=== PATIENT | female | born 1955 | race Caucasian/White ===

== ENCOUNTER 2016-11-16 14:23 | Emergency (ER) | payer OTHER ==
--- NOTE | 2016-11-16 14:35 | ER Document Report ---
ED Medical Screen (RME) - General Stated Complaint: ABDOMINAL PAIN Time seen by provider: 14:28 Mode of Arrival: Ambulatory Information source: Patient Notes: 61-year-old female complaining of generalized abdomen pain and nausea, vomited multiple times which made the abdomen feel better. No constipation , normal bm this am. The abd pain recurred this am at 9:30. associated with nausea. TRAVEL OUTSIDE OF THE [place] IN LAST 30 DAYS: No - Related Data Allergies/Adverse Reactions: No Known Allergies Allergy (Unverified 02/23/11 12:24) Past Medical History - Past Medical History Cardiac Medical History: Denies: Hx Coronary Artery Disease, Hx Heart Attack, Hx Hypertension Pulmonary Medical History: Denies: Hx Asthma, Hx Bronchitis, Hx COPD, Hx Pneumonia Neurological Medical History: Denies: Hx Cerebrovascular Accident, Hx Seizures GI Medical History: Denies: Hx Hiatal Hernia, Hx Ulcer Musculoskeltal Medical History: Denies Hx Arthritis Infectious Medical History: Past Surgical History: Reports: Hx Hysterectomy, Hx Tonsillectomy. Denies: Hx Mastectomy, Hx Open Heart Surgery, Hx Pacemaker - Immunizations Hx Diphtheria, Pertussis, Tetanus Vaccination: No - Greater than 10 yrs
[2016-11-16] MEDS ORDERED: OXYCODONE-ACETAMINOPHEN 5-325 MG TABLET PO ONE (14:38)
[2016-11-16] MEDS ORDERED: ONDANSETRON 4 MG TAB.RAPDIS PO ONE (14:38)
[2016-11-16 14:58] LABS: ABSOLUTE BASOPHILS # (AUTO) 0.1 10^3/uL (0.0-0.2); ABSOLUTE EOSINOPHILS # (AUTO) 0.1 10^3/uL (0.0-0.6); ABSOLUTE LYMPHOCYTES (AUTO) 1.8 10^3/uL (0.5-4.7); ABSOLUTE MONOCYTES (AUTO) 0.8 10^3/uL (0.1-1.4); ABSOLUTE NEUT (AUTO) 8.3 10^3/uL (1.7-8.2); BASOPHILS % (AUTO) 0.6 % (0-2); EOSINOPHILS % (AUTO) 0.8 % (0-6); HEMATOCRIT 41.4 % (36.0-47.0); HEMOGLOBIN 14.3 g/dL (12.0-15.5); HGB HCT DIFFERENCE 1.5; LYMPHOCYTES % (AUTO) 16.1 % (13-45); MEAN CORPUSCULAR HEMOGLOBIN 29.1 pg (27.0-33.4); MEAN CORPUSCULAR HGB CONC 34.5 g/dL (32.0-36.0); MEAN CORPUSCULAR VOLUME 84 fl (80-97); MONOCYTES % (AUTO) 6.9 % (3-13); RED BLOOD COUNT 4.91 10^6/uL (3.72-5.28); RED CELL DISTRIBUTION WIDTH 13.3 % (11.5-14.0); SEGMENTED NEUTROPHILS % (AUTO) 75.6 % (42-78); WHITE BLOOD COUNT 10.9 10^3/uL (4.0-10.5)
[2016-11-16 15:05] LABS: APPEARANCE,URINE CLEAR; BILIRUBIN,URINE NEGATIVE (NEGATIVE); GLUCOSE, URINE NEGATIVE (NEGATIVE); KETONES,URINE NEGATIVE (NEGATIVE); LEUKOCYTE ESTERASE,URINE NEGATIVE (NEGATIVE); NITRITE,URINE NEGATIVE (NEGATIVE); PROTEIN,URINE NEGATIVE (NEGATIVE); URINE SPECIFIC GRAVITY 1.016
[2016-11-16 15:17] LABS: ALANINE AMINOTRANSFERASE 65 U/L (9-52); ALBUMIN 4.6 g/dL (3.5-5.0); ALKALINE PHOSPHATASE 127 U/L (38-126); ANION GAP 13 (5-19); ASPARTATE AMINO TRANSFERASE 102 U/L (14-36); BILIRUBIN,TOTAL 1.5 mg/dL (0.2-1.3); BLOOD UREA NITROGEN 14 mg/dL (7-20); CALCIUM 10.1 mg/dL (8.4-10.2); CARBON DIOXIDE 27 mmol/L (22-30); CHLORIDE 105 mmol/L (98-107); CREATININE RESULT 0.72 mg/dL (0.52-1.25); GLUCOSE 93 mg/dL (75-110); LIPASE 71.8 U/L (23-300); SODIUM 144.6 mmol/L (137-145); TOTAL PROTEIN 7.5 g/dL (6.3-8.2)
--- NOTE | 2016-11-16 15:58 | ER Document Report ---
ED GI/ - General Mode of Arrival: Ambulatory Information source: Patient TRAVEL OUTSIDE OF THE [place] IN LAST 30 DAYS: No - HPI Patient complains to provider of: Abdominal pain, Vomiting Onset: This morning - 09:30 Timing/Duration: Sudden, Persistent Context: Other - Pizza last night. Location: Epigastric, LLQ, RUQ Associated symptoms: Nausea, Radiates to back, Vomiting. denies: Fever, Urinary hesitancy, Urinary frequency, Urinary retention, Urinary urgency Similar symptoms previously: Yes <CYN DUKE - Last Filed: 11/16/16 16:19> <DELPHINE MORA - Last Filed: 11/16/16 19:37> - General Chief Complaint: Abdominal Pain >50 Stated Complaint: ABDOMINAL PAIN Notes: Patient is a 61-year-old female presenting to the emergency department concerned of severe upper abdominal pain which radiates into her back onset this morning at approximately 09:30. Patient admits to Nausea, vomiting, and clamminess, but denies fever or any urinary issues. atient states that she has a history of colorectal cancer and gallstones. Patient has been in remission for 10 years, and her colorectal surgeon discussed cholecystectomy when she was having her bowel resection, but the surgery ended up being more complicated than anticipated, so he was unable to remove her gall bladder. Patient also states that she has episodes of abdominal pain, nausea, and vomiting approximately 2x per year, but they only last a few hours and usually go away. Patient states this episode feels similar, but it has been very persistent, and the episodes have been happening more frequently. Patient also mentioned that she had pizza for dinner last night. (CYN DUKE) - Related Data Allergies/Adverse Reactions: No Known Allergies Allergy (Verified 11/16/16 14:29) Past Medical History - General Information source: Patient - Social History Smoking Status: Never Smoker Chew tobacco use (# tins/day): No Frequency of alcohol use: None Drug Abuse: None Family History: Reviewed & Not Pertinent Patient has suicidal ideation: No Patient has homicidal ideation: No - Past Medical History Cardiac Medical History: Pulmonary Medical History: Denies: Hx COPD Malignancy Medical History: Reports: Hx Colorectal Cancer GI Medical History: Musculoskeltal Medical History: Infectious Medical History: Past Surgical History: Reports: Hx Colostomy, Hx Hysterectomy, Hx Tonsillectomy - Immunizations Hx Diphtheria, Pertussis, Tetanus Vaccination: No - Greater than 10 yrs <CYN DUKE - Last Filed: 11/16/16 16:19> Review of Systems - Review of Systems Constitutional: Diaphoresis - Clammy EENT: No symptoms reported Cardiovascular: No symptoms reported Respiratory: No symptoms reported Gastrointestinal: See HPI, Abdominal pain, Nausea, Vomiting Genitourinary: No symptoms reported Female Genitourinary: No symptoms reported Musculoskeletal: See HPI, Back pain Skin: No symptoms reported Hematologic/Lymphatic: No symptoms reported Neurological/Psychological: No symptoms reported -: Yes All other systems reviewed and negative <CYN DUKE - Last Filed: 11/16/16 16:19> Physical Exam - Vital signs Interpretation: Hypertensive - General General appearance: Appears well, Alert - HEENT Head: Normocephalic, Atraumatic Eyes: Normal Pupils: PERRL - Respiratory Respiratory status: No respiratory distress Chest status: Nontender - Cardiovascular Rhythm: Regular Heart sounds: Normal auscultation Murmur: No - Abdominal Inspection: Obese Distension: No distension Bowel sounds: Normal - Back Back: Normal, Nontender - Extremities General upper extremity: Normal inspection, Nontender, Normal color, Normal ROM , Normal temperature General lower extremity: Normal inspection, Nontender, Normal color, Normal ROM , Normal temperature, Normal weight bearing - Neurological Neuro grossly intact: Yes Cognition: Normal Orientation: AAOx4 [place] Coma Scale Eye Opening: Spontaneous [place] Coma Scale Verbal: Oriented [place] Coma Scale Motor: Obeys Commands [place] Coma Scale Total: 15 Speech: Normal - Psychological Associated symptoms: Normal affect, Normal mood - Skin Skin Temperature: Warm Skin Moisture: Dry Skin Color: Normal <CYN DUKE - Last Filed: 11/16/16 16:19> Course - Laboratory Result Diagrams: 11/16/16 14:40 11/16/16 14:40 <CYN DUKE - Last Filed: 11/16/16 16:19> - Laboratory Result Diagrams: 11/16/16 14:40 11/16/16 14:40 <DELPHINE MORA - Last Filed: 11/16/16 19:37> - Re-evaluation Re-evalutation: 11/16/16 19:30 I personally performed the services described in the documentation, reviewed and edited the documentation which was dictated to my scribe in my presence, and it accurately records my words and actions. Patient presents the emergency department with a chief complaint of upper abdominal pain. She says it started yesterday was pretty severe nature but seemed to subside. She states it recurred today associated with eating. She has a history of colon cancer with no colostomy in remission has frequent follow- ups were then there is not been any recurrence. She says she is nauseated but no vomiting diarrhea or blood in her stool. She now she has gallstones had them last evaluated about 10 years ago but is not spoke with the surgeon about getting them out. She also denies any GI history or history of kidney stones. She has a chest pain shortness of breath on physical examination she is well- appearing nontoxic with epigastric right upper quadrant abdominal pain. On examination mild tenderness the right upper quadrant no inspiratory positive guarding rebound rigidity she is hemodynamically stable. She is afebrile. No acute white count elevation mildly elevated liver enzymes gallbladder shows cholelithiasis but no acute cholecystitis. CT scan with IV contrast shows postoperative changes but nothing acute. On serial abdominal examination she has no guarding rebound rigidity peritoneal signs her pain is only is resolved. I'm going to discharge her with pain and nausea medication she's going to contact Dr. Kothari in a.m. for 2-3 day follow-up and discuss reasons for ED return sooner (DELPHINE MORA) - Vital Signs Vital signs: Temp Pulse Resp BP Pulse Ox 97.9 F 68 16 143/61 H 99 11/16/16 14:30 11/16/16 14:30 11/16/16 14:30 11/16/16 14:30 11/16/16 14:30 (CYN DUKE) (DELPHINE MORA) - Laboratory Laboratory results interpreted by me: 11/16/16 11/16/16 11/16/16 14:40 14:40 14:40 WBC 10.9 H Absolute Neutrophils 8.3 H Total Bilirubin 1.5 H AST 102 H ALT 65 H Alkaline Phosphatase 127 H Urine Urobilinogen 2.0 H (CYN DUKE) (DELPHINE MORA) Discharge <CYN DUKE - Last Filed: 11/16/16 16:19> <DELPHINE MORA - Last Filed: 11/16/16 19:37> - Discharge Clinical Impression: Abdominal pain Qualifiers: Abdominal location: unspecified location Qualified Code(s): R10.9 - Unspecified abdominal pain Condition: Stable Disposition: HOME, SELF-CARE Additional Instructions: Abdominal Pain There are many causes of abdominal pain. Pain can mean a serious problem requiring surgery (such as appendicitis). It can also be an innocent problem that goes away on its own (such as a viral infection). Often, time must pass to determine the cause of pain. The physician does not feel that hospitalization is necessary, at present. Things may change within the next 24 hours. Call the doctor or come back for re- examination if any problems occur, such as: (1) Pain that becomes more severe, steady, or becomes concentrated in one specific area. Also, pain that is more severe with movement or coughing. (2) Vomiting that persists or becomes more frequent. (3) Blood in the vomitus, urine, or bowel movements. Blood in the stool may have a tarry or black appearance. (4) Shaking chills or fever greater than 100 degrees F. (5) The abdomen becomes more distended or swollen. (6) Bowel movements cease. (7) Failure to improve as expected. Prescriptions: Ondansetron [Zofran Odt 4 mg Tablet] 1 - 2 tab PO Q4H PRN #15 tab.rapdis PRN Reason: For Nausea/Vomiting Oxycodone HCl/Acetaminophen [Percocet 10-325 Mg Tablet] 1 each PO Q4 #12 tablet Referrals: LIZA KOTHARI MD [ACTIVE STAFF] - Follow up in 3-5 days (Call in a.m. to be seen in follow-up in 2-3 days return for increasing worsening or new symptoms) MERRY FRANCO MD [Primary Care Provider] - Follow up as needed (in 1-2 days) Scribe Documentation - Scribe acting as scribe for :: Greg <CYN DUKE - Last Filed: 11/16/16 16:19>
[2016-11-16] MEDS ORDERED: NORMAL SALINE 1000 ML 1,000 ML IV ONE (15:59)
[2016-11-16] MEDS ORDERED: FENTANYL CITRATE INJ/PF 100 MCG/2 ML AMPUL IV ONE (15:59)
[2016-11-16] MEDS ORDERED: HYDROCODONE/ACETAMINOPHEN 5-325 MG 6 TAB/DSPK PO PRN (19:37)
[2016-11-16] MEDS ORDERED: ONDANSETRON ODT 4 MG TAB (6 TAB/DSPK) PO PRN (19:37)
[2016-11-16 20:35] VITALS: BP 128/68
== END 2016-11-16 20:35 | disposition home or self-care (01) ==
LOC: ER 14:23
DX: K80.20 Calculus of gallbladder without cholecystitis without obstruction (principal); R10.13 Epigastric pain; R10.11 Right upper quadrant pain; R10.32 Left lower quadrant pain; R11.0 Nausea; R11.2 Nausea with vomiting, unspecified; R61 Generalized hyperhidrosis; Z90.49 Acquired absence of other specified parts of digestive tract; Z87.19 Personal history of other diseases of the digestive system; Z85.048 Personal history of other malignant neoplasm of rectum, rectosigmoid junction, and anus; Z90.710 Acquired absence of both cervix and uterus; R74.8 Abnormal levels of other serum enzymes
CPT/HCPCS: 99284; 36415; 87086; 83690; 85025; 80053; 81001; 76705; 74177; S0119

== ENCOUNTER 2017-03-02 08:29 | Day surgery (SDC) | payer OTHER ==
[2017-02-25 08:52] LABS: HEMOGLOBIN 13.5 g/dL (12.0-15.5); HGB HCT DIFFERENCE 0.5; MEAN CORPUSCULAR HEMOGLOBIN 28.7 pg (27.0-33.4); MEAN CORPUSCULAR HGB CONC 33.9 g/dL (32.0-36.0); MEAN CORPUSCULAR VOLUME 85 fl (80-97); RED BLOOD COUNT 4.71 10^6/uL (3.72-5.28); RED CELL DISTRIBUTION WIDTH 13.5 % (11.5-14.0); WHITE BLOOD COUNT 6.1 10^3/uL (4.0-10.5)
[2017-02-25 09:31] LABS: ALANINE AMINOTRANSFERASE 21 U/L (9-52); ALKALINE PHOSPHATASE 96 U/L (38-126); AMYLASE 55 U/L (30-110); ANION GAP 13 (5-19); ASPARTATE AMINO TRANSFERASE 17 U/L (14-36); BILIRUBIN,DIRECT 0.1 mg/dL (0.0-0.4); BILIRUBIN,TOTAL 0.4 mg/dL (0.2-1.3); BLOOD UREA NITROGEN 21 mg/dL (7-20); CALCIUM 10.2 mg/dL (8.4-10.2); CARBON DIOXIDE 23 mmol/L (22-30); CHLORIDE 107 mmol/L (98-107); CREATININE RESULT 0.85 mg/dL (0.52-1.25); GLUCOSE 106 mg/dL (75-110); POTASSIUM 4.5 mmol/L (3.6-5.0); SODIUM 143.4 mmol/L (137-145); TOTAL PROTEIN 6.9 g/dL (6.3-8.2)
--- NOTE | 2017-02-25 21:53 | EKG REPORT ---
SEVERITY:- NORMAL ECG - SINUS RHYTHM : Confirmed by: Lisbeth Ozuna MD 25-Feb-2017 21:51:56
[~2017-03-02 08:29] MED LIST: ACETAMINOPHEN 325 MG TABLET PO PRN; BUPIVACAINE HCL 0.25 % INJ/PF (2.5 MG/1 ML) 30 ML VIAL ONE; CEFAZOLIN 1 GM/D5W RTU 1 GM/50 ML RTUPB IV PRN; LACTATED RINGERS 1000 ML IV PRN; LIDOCAINE 0.5% INJ-PF (5 MG/ML) 50 ML SDV SUBCUT PRN
[2017-03-02] MEDS ORDERED: MIDAZOLAM 2 MG/2 ML INJ ONE (11:47)
[2017-03-02] MEDS ORDERED: EPHEDRINE SULFATE INJ 50 MG/1 ML AMPULE ONE (11:47)
[2017-03-02] MEDS ORDERED: PROPOFOL INJ 200 MG/20 ML VIAL IV ONE (11:47)
[2017-03-02] MEDS ORDERED: HYDROMORPHONE HCL INJ/PF 2 MG/ML AMPULE ONE (11:47)
[2017-03-02] MEDS ORDERED: FENTANYL CITRATE INJ/PF 250 MCG/5 ML AMPULE ONE (11:47)
[2017-03-02] MEDS ORDERED: ACETAMINOPHEN 100 ML IV ONE (11:48)
[2017-03-02] MEDS ORDERED: FENTANYL CITRATE INJ/PF 100 MCG/2 ML AMPUL IV PRN ×3 (12:46)
[2017-03-02] MEDS ORDERED: MEPERIDINE HCL/PF INJ 25 MG/1 ML DISP.SYRIN IV PRN (12:46)
[2017-03-02] MEDS ORDERED: MORPHINE SULFATE 10 MG/ML INJ IV PRN (12:46)
[2017-03-02] MEDS ORDERED: PROMETHAZINE HCL INJ 25 MG/1 ML VIAL IV PRN ×2 (12:46)
[2017-03-02] MEDS ORDERED: OXYCODONE-ACETAMINOPHEN 5-325 MG TABLET PO PRN ×3 (12:46→13:39)
[2017-03-02] MEDS ORDERED: DIPHENHYDRAMINE HCL 50 MG/ML VIAL IV PRN (12:46)
[2017-03-02] MEDS ORDERED: ONDANSETRON HCL INJ/PF 4 MG/2 ML SDV IV PRN (13:39)
[2017-03-02] MEDS ORDERED: RINGERS SOLUTION,LACTATED 1,000 ML IV PRN (13:39)
--- NOTE | 2017-03-02 13:39 | Operative Report ---
Operative Report DATE OF SURGERY: 03/02/17 PREOPERATIVE DIAGNOSIS: Symptomatic cholelithiasis with cholecystitis POSTOPERATIVE DIAGNOSIS: Same OPERATION: 1. Laparoscopic cholecystectomy SURGEON: LIZA RANKIN HOSTLER HELPER: HEATHER MEDLEY ANESTHESIA: GA TISSUE REMOVED OR ALTERED: 1 gallbladder with contents COMPLICATIONS: None ESTIMATED BLOOD LOSS: scant INTRAOPERATIVE FINDINGS: See below PROCEDURE: After obtaining informed consent, the patient was taken to the operating room. General Anesthesia was induced; the arms were extended, and the abdomen was exposed, and prepped and draped in a sterile fashion. Instrumentation was set up for laparoscopic cholecystectomy. Surgical plan and surgical timeout were conducted. Because the patient had previous midline surgery, as well as an overlay mesh repair of the abdominal wall, we selected the right upper quadrant was established pneumoperitoneum. A right upper quadrant stab was made with a knife , and a verres needle was inserted uneventfully into the peritoneal cavity. Pneumoperitoneum was established. The verres needle was removed and a 5 mm trocar was inserted and a 5 mm flexible laparoscope was inserted. Visualization of the peritoneal cavity confirmed safe uneventful entry. There were extensive loops of small bowel adhesed to the midline. This was presumably due to mesh although no mesh was seen from the peritoneal side. Therefore Under direct visualization 3 additional 5 mm ports were established, one in the subxiphoid position lateral to the mesh and second in the subcostal position. The final port was placed midway between the umbilicus and the subxiphoid area Visualization of the hepatobiliary anatomy revealed no anatomic variations. Gallbladder was markedly distended. We Initially began dissecting out the neck of the gallbladder however a hole was made in the infundibulum and a lot of small stones spilled out. Therefore we switched to a top down approach. The gallbladder was removed from the liver bed using hook cautery dissection. We proceeded very methodically such that the gallbladder was freely suspended from its point of attachment. We dissected this area out carefully and identified the cystic duct and cystic artery. The cystic artery was clipped twice proximally and distally divided scissors. The gallbladder was now suspended solely from the cystic duct. Photographs were taken. We used an Endoloop to secure the gallbladder side of the cystic duct then divided the cystic duct allowing gallbladder to be positioned out of the field of view. We now checked the cystic duct stump which is patent and appeared to be draining yellow bile without any evidence of retained stones in the cystic duct stump. The stump was secured with a Endoloop PDS 3-0.the gallbladder was placed in an Endobag and brought out of the patient through the mid position port site after extending the Elizabeth clamp. Specimen was passed off to pathology including gallbladder and multiple stones We spent a fair amount of time retrieving loose stones which had settled in the area of the michael hepatis. We irrigated the peritoneal cavity carefully. There was no bleeding. Without the operation was complete. T The subcutaneous tissue was then anesthetized with quarter percent Marcaine Sponge and needle counts are correct. All ports removed under direct visualization pneumoperitoneum evacuated, the mid abdominal port site was closed with 3-0 Vicryl and 5 mm port wounds closed with 3-0 Vicryl suture, benzoin and Steri-Strips. The patient was extubated, and taken to the recovery room in stable condition.
--- NOTE | 2017-03-02 13:43 | PDOC DISCHARGE SUMMARY ---
Discharge Summary (SDC) - Discharge Final Diagnosis: Symptomatic cholelithiasis with cholecystitis Date of Surgery: 03/02/17 Discharge Date: 03/02/17 Condition: Good Treatment or Instructions: [facility] [address] [place] [id number] Discharge Instructions: Laparoscopic Surgery 1. General Information: a. DO NOT DRIVE a car or operate dangerous machinery for 3-4 days or while taking narcotic pain pills. b. DO NOT consume alcohol, tranquilizers, sleeping medications or any non- prescribed medications for 24 hours unless approved by your doctor or as long as taking narcotic prescription medications. c. DO NOT make important decisions or sign any important papers for the first 24 hours after surgery. d. When discharged home the same day of surgery have a responsible person with you for the first night. 2. Activity Restrictions: 2 weeks. a. NO heavy lifting, straining abdominal muscles, bending over a lot, yard work, house work, or sports for 2 weeks. b. c. It is fine to go for walks, up and down steps, ride in a car. d. Elevate your head when sleeping/resting. 3. Treatment: a. You may shower 24 hours after surgery, no baths or swimming for 2 weeks. Remove band-aids or dressings before shower but leave paper strips (steri-strips ) on the skin to fall off on their own. If still on at postoperative visit they will be removed then. b. Drainage of fluid or blood is not unusual from an incision. If occurs, you can clean with peroxide and cotton ball daily and cover with dry gauze until the wound seals. c. If a lot of bleeding occurs, you can hold pressure with a gauze or cloth over the site for 10 minutes and it will usually stop. If bleeding continues you will need to call for possible evaluation in office or emergency room. 4. Medications: a. You may switch to plain Tylenol, Advil or Aleve as you transition from the narcotic. Many adults find good pain relief with Advil 600-800 mg three times a day with meals. This can cause indigestion, ulcers, and kidney problems with long-term use. b. You should resume all normal medications unless a change is specified by your doctors. c. Begin with clear liquids and may progress to your normal diet if not nauseated. No high fat, high protein foods the day of surgery. Normal diet 6. The following may occur after laparoscopic surgery: a. Shoulder or upper back ache from retained gas that should resolve in 1-2 days b. Soreness and bruising at incision sites will resolve with time. c. Scrotal swelling (labia in women) and bruising is often seen after hernia surgery. d. Sore throat e. Fatigue may last days to weeks. f. Difficulty urinating may occur and may need to come into emergency room for urinary catheter placement. 7. Notify Physician If: a. Worsening or pain not improved with pain medication b. Persistent nausea and vomiting c. Fever above 101 d. Persistent bleeding or swelling at operative site e. Unable to urinate and uncomfortable bladder 6-8 hours after surgery 8..Follow Up Care: a. Schedule a follow up appointment with your doctor for 2 weeks. In the event of any postoperative problems or questions or you may call the office during business hours or the On-Call physician evenings and weekends at [facility]. [facility] I understand the instructions for my postoperative care as described above and a copy has been given to me. Patient/Significant Other Witness Date Prescriptions: Ketorolac Tromethamine [Toradol 10 mg Tablet] 10 mg PO Q6HP PRN #0 tablet PRN Reason: Discharge Diet: As Tolerated Discharge Activity: Activity As Tolerated Home Care Assistance: None Needed Report the Following to Your Physician Immediately: Shortness of Breath, Increase in Pain, Fever over 101 Degrees
[2017-03-02] MEDS ORDERED: KETOROLAC TROMETHAMINE 60 MG/2 ML SDV IM PRN (14:15)
[2017-03-02] MEDS ORDERED: ROCURONIUM BROMIDE INJ 50 MG/5 ML VIAL IV ONE (14:22)
[2017-03-02] MEDS ORDERED: ONDANSETRON HCL INJ/PF 4 MG/2 ML SDV ONE (14:22)
[2017-03-02] MEDS ORDERED: LIDOCAINE 2% INJ-PF (20 MG/ML) 10 ML AMPUL ONE (14:22)
[2017-03-02] MEDS ORDERED: SUCCINYLCHOLINE CHLORIDE INJ 200 MG/10 ML VIAL ONE (14:22)
[2017-03-02] MEDS ORDERED: NEOSTIGMINE METHYLSULFATE 10 MG/10 ML VIAL ONE (14:22)
[2017-03-02] MEDS ORDERED: DEXAMETHASONE SOD PHOSPHATE INJ 4 MG/1 ML VIAL ONE (14:22)
[2017-03-02] MEDS ORDERED: GLYCOPYRROLATE INJ 0.4 MG/2 ML VIAL ONE (14:22)
[2017-03-02 16:15] VITALS: BP 115/78
== END 2017-03-02 16:10 | disposition home or self-care (01) ==
LOC: OROUT 08:29
PROVIDERS: ATTEND Surgery
PROC: 0FT44ZZ Resection of Gallbladder, Percutaneous Endoscopic Approach (ICD-10-PCS; principal; 2017-03-02 10:30)
DX: K80.10 Calculus of gallbladder with chronic cholecystitis without obstruction (principal); E66.9 Obesity, unspecified; K21.9 Gastro-esophageal reflux disease without esophagitis; Z80.0 Family history of malignant neoplasm of digestive organs; Z85.038 Personal history of other malignant neoplasm of large intestine; Z79.899 Other long term (current) drug therapy; Z90.49 Acquired absence of other specified parts of digestive tract
CPT/HCPCS: 93005; 36415; 82150; 85027; 80076; 80048; 88304 ×2; 93010; 47562; J2250; J0690; J3490 ×2; J1100; J3010; J1170; J0330; J2405; J2704; J0131; 790

== ENCOUNTER 2017-07-07 07:55 | Day surgery (SDC) | payer OTHER ==
[~2017-07-07 07:55] MED LIST changes: -ACETAMINOPHEN 325 MG TABLET PO PRN; -BUPIVACAINE HCL 0.25 % INJ/PF (2.5 MG/1 ML) 30 ML VIAL ONE; -CEFAZOLIN 1 GM/D5W RTU 1 GM/50 ML RTUPB IV PRN; +EPINEPHRINE INJ 1 MG/10 ML DISP.SYRIN ONE; +FENTANYL CITRATE INJ/PF 100 MCG/2 ML AMPUL ONE; +FLUMAZENIL INJ 0.5 MG/5 ML VIAL ONE; +GLUCAGON,HUMAN RECOMB 1 MG INJ ONE; -LACTATED RINGERS 1000 ML IV PRN; -LIDOCAINE 0.5% INJ-PF (5 MG/ML) 50 ML SDV SUBCUT PRN; +NALOXONE HCL INJ/PF 0.4 MG/1 ML SDV ONE; +ONDANSETRON HCL INJ/PF 4 MG/2 ML SDV ONE
[2017-07-07] MEDS: MIDAZOLAM 2 MG/2 ML INJ ONE ×2 (08:57→09:02)
--- NOTE | 2017-07-07 09:44 | PDOC DISCHARGE SUMMARY ---
Discharge Summary (SDC) - Discharge Final Diagnosis: right colon polyp; Hx of Colon cancer Date of Surgery: 07/07/17 Discharge Date: 07/07/17 Condition: Good Treatment or Instructions: [place] [id number] POST ENDOSCOPY DISCHARGE INSTRUCTIONS 1. Diet: Start clear liquids that a regular diet as tolerated. 2. Resume all preoperative medications. All oral anticoagulants and aspirins can be resumed 24 hours after procedure. 3. If a polypectomy was performed some bleeding per rectum may occur. This should stop within 3 days. If not, please contact the office. 4. If you had a colonoscopy you may experience some bloating and delayed return of normal bowel function for several days, your regular bowel movement pattern should resume within a week. 5. Please contact [facility] at to make an appointment with Dr. Kothari for 1 to 3 weeks following procedure. 6. If you have any questions or concerns regarding your care,treatment plan or follow up, please contact our office. 7. Per clinical guidelines we recommend you undergo a repeat colonoscopy in 3 years. Referrals: MERRY FRANCO MD [Primary Care Provider] - Discharge Activity: Activity As Tolerated Home Care Assistance: None Needed Report the Following to Your Physician Immediately: Shortness of Breath, Increase in Pain, Fever over 101 Degrees
--- NOTE | 2017-07-07 10:12 | OPERATIVE REPORT E ---
Operative Report NAME: DIANA MEYER : 1955 AGE: 61Y DATE OF SURGERY: 07/07/2017 ROOM: PREOPERATIVE DIAGNOSIS: Personal history of colon cancer, status post low anterior resection. POSTOPERATIVE DIAGNOSES: 1. Personal history of colon cancer, status post low anterior resection. 2. No evidence of malignancy; small sessile polyp of the ascending colon. 3. Scattered diverticulosis. PROCEDURES: 1. Total colonoscopy to the cecum. 2. Ascending colon polypectomy. SURGEON: LIZA SPEARS M.D. ANESTHESIA: Conscious sedation. COMPLICATIONS: None. ESTIMATED BLOOD LOSS: Scan. DRAINS: None. TISSUE REMOVED OR ALTERED: One polyp. SUMMARY OF PROCEDURE: Patient was taken from the preoperative endoscopy area to the endoscopy suite where she was placed in semi-recumbent position left lateral. Monitoring devices were attached. Surgical plan and surgical timeout were conducted. A rectal exam was performed. There was no visible or palpable anorectal pathology. A flexible adult colonoscope was advanced to the anorectal canal all the way to the cecum. This was an excellent study on a well prepped bowel. Transillumination of the anterior abdominal wall, depression of the anterior abdominal, and visualization of the ileocecal valve confirmed cecal intubation. Scope was withdrawn through the length of the colon checking the mucosa carefully. There were a few scattered polyps in the right and left colon. In the ascending colon there was a small sessile polyp which was photographed and then biopsied. Cold snare was used for the biopsy. Specimen was retrieved. There was no significant bleeding. The scope was brought back through the rest of the colon. The site of the lower anterior anastomosis was examined carefully. It was approximately 8 cm from the anal verge. There was no evidence of tumor recurrence. There was slight irregularity of the colorectal configuration but nothing pathologic. Multiple photos were taken. Scope was removed from the patient's anus. She tolerated the procedure well. She was taken to the recovery room in stable condition. Per surveillance guidelines, she would be an appropriate candidate for followup colonoscopy in 3 years or sooner pending the results of today's biopsy. DICTATING PHYSICIAN: LIZA SPEARS M.D. [id number] PHY#: [id number] ID: [id number] JOB#: [id number] ACCT: [id number] cc:LIZA SPEARS M.D. >
[2017-07-07 10:50] VITALS: BP 117/68
== END 2017-07-07 10:27 | disposition home or self-care (01) ==
LOC: END 07:55
PROVIDERS: ATTEND Surgery
PROC: 0DBK8ZX Excision of Ascending Colon, Via Natural or Artificial Opening Endoscopic, Diagnostic (ICD-10-PCS; principal; 2017-07-07 08:15)
DX: D12.2 Benign neoplasm of ascending colon (principal); K57.30 Diverticulosis of large intestine without perforation or abscess without bleeding; Z85.038 Personal history of other malignant neoplasm of large intestine; Z80.0 Family history of malignant neoplasm of digestive organs; E66.9 Obesity, unspecified; K44.9 Diaphragmatic hernia without obstruction or gangrene; Z79.899 Other long term (current) drug therapy
CPT/HCPCS: 45380; 88305 ×2; J2250; J0171; J3010; J1610; J2310; J2405; J3490